=== PATIENT | male | born 1970 | race African-American/Black ===

== ENCOUNTER 2018-07-30 06:42 | Emergency (ER) | payer OTHER ==
[2018-07-30 07:22] LABS: #Basophils 0.1 thou/uL (0.0-0.2); #Eosinphils 0.4 thou/uL (0.0-0.7); #Lymphocytes 1.6 thou/uL (1.20-3.40); #Monocytes 0.4 thou/uL (0.11-0.59); %Basophils 1.1 % (0.0-1.0); %Lymphocytes 35.1 % (21.0-51.0); %Neutrophils 45.8 % (42.0-75.0); Mean Platelet Volume 9.3 fL (7.4-10.4); Platelet Count 210 thou/uL (130-400); RBC Distribution Width 12.9 % (11.5-14.5); Red Blood Cell (RBC) Count 4.33 mill/uL (4.70-6.10); White Blood Cell (WBC) Count 4.4 thou/uL (4.8-10.8)
[2018-07-30] MEDS ORDERED: Furosemide 40 MG/4 ML VIAL ONE (07:30)
[2018-07-30 07:38] LABS: ALT (SGPT) 15 U/L (8-55); AST (SGOT) 17 U/L (5-34); Albumin 4.3 g/dL (3.5-5.0); Alkaline Phosphatase 67 U/L (40-150); Anion Gap 11 mmol/L (10-20); BUN (Urea Nitrogen) 12 mg/dL (8.9-20.6); Bilirubin, Total 1.3 mg/dL (0.2-1.2); Calc. Creatinine Clearance 0 mL/min (70-130); Calcium 9.7 mg/dL (7.8-10.44); Carbon Dioxide 24 mmol/L (22-29); Chloride 111 mmol/L (98-107); Estimated GFR-MDRD 77; Globulin 3.1 g/dL (2.4-3.5); Glucose 101 mg/dL (70-105); Potassium 3.9 mmol/L (3.5-5.1); Protein, Total 7.4 g/dL (6.0-8.3); Sodium 142 mmol/L (136-145)
[2018-07-30 07:40] LABS: CKMB 1.7 ng/mL (0-6.6); Troponin I Less than 0.010 ng/mL (< 0.028)
[2018-07-30] MEDS ORDERED: Nitroglycerin 2% Ointment 1 INCH/1 GM Packet ONE (07:40)
[2018-07-30 08:19] LABS: Clarity Clear (Clear)
[2018-07-30 08:20] LABS: Bilirubin Negative (Negative); Blood, Urine Negative (Negative); Glucose, Urine (Dipstick) Negative (Negative); Leukocyte Negative (Negative); Nitrite Negative (Negative); Protein, Urine (Dipstick) Negative (Neg-Trace); Urobilinogen 0.2 mg/dL (0.2-1.0); pH, Urine 6.5 (5.0-9.0)
[2018-07-30 08:25] LABS: THC/Cannabinoid Screen Detected (NotDetected)
[2018-07-30 08:26] LABS: Amphetamine Not Detected (NotDetected); Barbiturates Screen Not Detected (NotDetected); Benzodiazepine Screen Not Detected (NotDetected); Cocaine Metabolite Screen Not Detected (NotDetected); Medtox Control Line Valid? VALID (VALID); Methadone Not Detected (NotDetected); Methamphetamine Not Detected (NotDetected); Opiate Screen Not Detected (NotDetected); Oxycodone Screen Not Detected (NotDetected); Phencyclidine (PCP) Not Detected (NotDetected); Tricyclic Screen Not Detected (NotDetected)
--- NOTE | 2018-07-30 19:51 | RAD ---
PORTABLE CHEST: DATE: 07-30-18 An AP portable film at 0652 is compared with a 01-23-16 study. FINDINGS: The heart is borderline in size but unchanged over the interval. There is no vascular congestion, maribeth ma, or pleural effusion. The lungs are clear. The trachea is midline. IMPRESSION: Borderline heart size but no change since 2016. POS: HOME
== END 2018-07-30 09:08 | disposition short-term general hospital (02) ==
LOC: BURERS 06:42
DX: I51.7 Cardiomegaly (principal); I20.8 Other forms of angina pectoris; I10 Essential (primary) hypertension; F17.210 Nicotine dependence, cigarettes, uncomplicated; Z79.899 Other long term (current) drug therapy
CPT/HCPCS: 71045; 80053; 80306; 81003; 82553; 84484; 85025; 93005; 94760; 96374; J1940

== ENCOUNTER 2018-12-21 08:33 | Emergency (ER) | payer OTHER ==
[2018-12-21 09:31] LABS: ALT (SGPT) 12 U/L (8-55); AST (SGOT) 17 U/L (5-34); Albumin 4.7 g/dL (3.5-5.0); Alkaline Phosphatase 82 U/L (40-150); Anion Gap 13 mmol/L (10-20); BUN (Urea Nitrogen) 12 mg/dL (8.9-20.6); Bilirubin, Total 0.8 mg/dL (0.2-1.2); Calc. Creatinine Clearance 0 mL/min (70-130); Calcium 9.7 mg/dL (7.8-10.44); Carbon Dioxide 24 mmol/L (22-29); Chloride 109 mmol/L (98-107); Estimated GFR-MDRD 84; Globulin 3.3 g/dL (2.4-3.5); Glucose 98 mg/dL (70-105); Potassium 3.8 mmol/L (3.5-5.1); Sodium 142 mmol/L (136-145)
== END 2018-12-21 10:18 | disposition home or self-care (01) ==
LOC: BURERS 08:33
DX: I10 Essential (primary) hypertension (principal); R53.83 Other fatigue; R00.0 Tachycardia, unspecified; F17.210 Nicotine dependence, cigarettes, uncomplicated; Z79.899 Other long term (current) drug therapy
CPT/HCPCS: 36415; 80053; 84484; 93005

== ENCOUNTER 2019-05-01 16:25 | Emergency (ER) | payer OTHER, SELFPAY ==
[2019-05-01] MEDS ORDERED: Fentanyl 100 MCG/2 ML VIAL ONE (16:54)
[2019-05-01 16:57] LABS: #Eosinphils 0.1 thou/uL (0.0-0.7); #Lymphocytes 1.6 thou/uL (1.20-3.40); #Monocytes 0.9 thou/uL (0.11-0.59); #Neutrophils 8.1 thou/uL (1.40-6.50); %Basophils 0.3 % (0.0-1.0); %Eosinophils 0.6 % (0.0-10.0); %Lymphocytes 14.7 % (21.0-51.0); %Monocytes 8.1 % (0.0-10.0); %Neutrophils 76.2 % (42.0-75.0); Mean Corpuscular Hemoglobin 30.1 pg (27.0-31.0); Mean Platelet Volume 6.3 fL (7.4-10.4); Platelet Count 474 thou/uL (130-400); RBC Distribution Width 13.7 % (11.5-14.5); Red Blood Cell (RBC) Count 4.34 mill/uL (4.70-6.10); White Blood Cell (WBC) Count 10.7 thou/uL (4.8-10.8)
[2019-05-01] MEDS ORDERED: Ondansetron PF 4 MG/2 ML Vial ONE (17:09)
[2019-05-01 17:10] LABS: ALT (SGPT) 20 U/L (8-55); AST (SGOT) 12 U/L (5-34); Albumin 3.9 g/dL (3.5-5.0); Alkaline Phosphatase 76 U/L (40-150); Anion Gap 15 mmol/L (10-20); BUN (Urea Nitrogen) 10 mg/dL (8.9-20.6); Bilirubin, Total 0.3 mg/dL (0.2-1.2); Calc. Creatinine Clearance 0 mL/min (70-130); Carbon Dioxide 28 mmol/L (22-29); Chloride 105 mmol/L (98-107); Estimated GFR-MDRD 70; Globulin 3.8 g/dL (2.4-3.5); Glucose 104 mg/dL (70-105); Lipase 5 U/L (8-78); Potassium 3.3 mmol/L (3.5-5.1); Protein, Total 7.7 g/dL (6.0-8.3); Sodium 145 mmol/L (136-145)
[2019-05-01] MEDS ORDERED: Potassium Chloride 20 MEQ/100 ML PREMIX BAG ONE (17:29)
[2019-05-01] MEDS ORDERED: Piperacillin/Tazobactam 4.5 GM VIAL ONE (17:55)
--- NOTE | 2019-05-01 20:06 | CT ---
CT ABDOMEN AND PELVIS WITH CONTRAST: Date: 05-01-[address] of the abdomen and pelvis was done after injection of IV contrast. A second set of axials w ere obtained due to patient motion. Coronal and sagittal reconstructions were done afterwards. Comparison: 04-26-19 done at [facility] FINDINGS: The patient has had a drainage tube removed in the interval. One can see the tract for the drainage tube in the left lower quadrant. The sigmoid colon remains rat her thick in terms of its bowel wall. There is a small fluid collection just adjacent to and above it on scan 54 and 57 of the axial sets. It is difficult to assess if this in bowel or outside of bowel, though I suspect the latter. It measures about 3.0-3.5 cm in size. It does not have gas in internal auditor ally like was seen on the original CT scans. The bowel around the area seems somewhat thickened. I do not see any free air in the abdomen at the moment. The lung bases are clearer than they were before with less atelectasis and less pleural fluid. The li asim, spleen, pancreas, gallbladder, and abdominal aorta showed no acute findings. The adrenal glands appear unchanged. Hypolucencies in each kidney are most likely cysts. Ultrasound would be needed for confirmation. There is no hydronephrosis. CT of the pelvis is remarkable for the findings listed above. IMPRESSION: 1. Localized 3 to 3.5 cm fluid collection immediately to the left and above the sigmoid colon. While it is not a 100% certain that this is outside of bowel, my leanings are that it is. I believe it is a small re-accumulation of infection, though not nearly as big as before and containing no air within it. There may need to be serial follow ups of this area and/or opacification of the bowel to separate things out better. 2. Improvement in the appearance and status of the lung bases and pleural effusions. Findings discussed with Dr. Moore at 1737. POS: HOME
== END 2019-05-01 18:40 | disposition short-term general hospital (02) ==
LOC: BURERS 16:25
DX: L02.211 Cutaneous abscess of abdominal wall (principal); I10 Essential (primary) hypertension; F32.9 Major depressive disorder, single episode, unspecified; F17.210 Nicotine dependence, cigarettes, uncomplicated; Z79.899 Other long term (current) drug therapy
CPT/HCPCS: 74177; 80053; 83605; 83690; 85025; 96365; 96368; 96375; J2405; J2543; J3010; J3480